=== PATIENT | female | born 1950 ===

== ENCOUNTER 2023-10-23 07:13 | Day surgery (SDC) | payer MEDICARE, BC ==
[2023-10-23] MEDS ORDERED: Dextrose 5%-0.45% NaCl 1,000 ML IV SCH (07:30)
[2023-10-23] MEDS ORDERED: Midazolam 1 MG/ML 2 ML SDV ONE (07:34)
[2023-10-23] MEDS ORDERED: fentaNYL 100 MCG/2 ML SDV ONE (07:34)
[2023-10-23] MEDS ORDERED: fentaNYL 100 MCG/2 ML SDV IV ONE ×2 (08:50→08:51)
[2023-10-23] MEDS ORDERED: Midazolam 1 MG/ML 2 ML SDV IV ONE ×2 (08:51→08:52)
== END 2023-10-23 10:35 | disposition home or self-care (01) ==
LOC: DL.ENDO 07:13
PROVIDERS: ATTEND Internal Medicine Gastroenterology
DX: K20.90 Esophagitis, unspecified without bleeding (principal); K44.9 Diaphragmatic hernia without obstruction or gangrene; I10 Essential (primary) hypertension; E78.5 Hyperlipidemia, unspecified; E66.9 Obesity, unspecified; Z68.38 Body mass index [BMI] 38.0-38.9, adult; K21.9 Gastro-esophageal reflux disease without esophagitis
CPT/HCPCS: 87077; 88305; J2250; J3010; J7042

== ENCOUNTER 2023-11-02 05:53 | Day surgery (SDC) | payer MEDICARE, BC ==
[2023-11-02] MEDS ORDERED: fentaNYL 100 MCG/2 ML SDV ONE (06:06)
[2023-11-02] MEDS ORDERED: Midazolam 1 MG/ML 2 ML SDV ONE (06:06)
[2023-11-02] MEDS ORDERED: Dextrose 5%-0.45% NaCl 1,000 ML IV SCH (06:30)
[2023-11-02] MEDS ORDERED: fentaNYL 100 MCG/2 ML SDV IV ONE ×6 (07:06→07:31)
[2023-11-02] MEDS ORDERED: Midazolam 1 MG/ML 2 ML SDV IV ONE ×6 (07:07→07:24)
== END 2023-11-02 09:50 | disposition home or self-care (01) ==
LOC: DL.ENDO 05:53
PROVIDERS: ATTEND Internal Medicine Gastroenterology
DX: K57.30 Diverticulosis of large intestine without perforation or abscess without bleeding (principal); K21.9 Gastro-esophageal reflux disease without esophagitis; I10 Essential (primary) hypertension; E78.5 Hyperlipidemia, unspecified; E66.8 Other obesity; Z68.38 Body mass index [BMI] 38.0-38.9, adult
CPT/HCPCS: 45378; J2250; J3010; J7042